=== PATIENT | male | born 2005 | race Two or more races ===

== ENCOUNTER 2024-08-17 03:27 | Inpatient (IN) | payer MEDICAID, SELFPAY ==
[~2024-08-17] VITALS: Ht 172.7 cm; Wt 72.6 kg
[2024-08-17 03:58] VITALS: PULSE 90; RESP 22; O2SAT 93
--- NOTE | 2024-08-17 04:02 | ED.PDOC ---
HPI (NEURO) HPI Comments 18-year-old male who came to ER via EMS for seizures. Patient was playing video games with his cousin earlier when he had a seizure like activity lasting about 5-10 minutes. Noted oral trauma. Mother who arrived, stated patient was confused initially. No fever noted. Patient has no recollection what happened. Patient has no history of seizures. Patient denies taking any prohibited drugs or alcohol. Chief Complaint: Seizure Time Seen by MD: 04:26 Reviewed Notes: [employer] Faculty Member Notes Information Source: Patient, Relative (Mother), Emergency Med Personnel Mode of Arrival: EMS Severity: Moderate Dizziness/Weakness Severity: Unable to do activities Headache Severity: Moderate Timing: Minutes Duration: Minutes Prehospital treatment: Oxygen Seizure Quality: Tonic-clonic Headache Quality: Throbbing, Aching Headache Location: Generalized Weakness Location: Generalized Numbness Location: Generalized Seizure Location: Generalized Onset: With light exertion Circumstances: Spontaneous Symptoms: Weakness Before: Normal During: LOC, Trauma: Tongue (Upper lip) After: Confusion, Headache Associated Signs and Symptoms: Headache, Weakness Review of Systems REVIEW OF SYSTEMS: No fever, no chills, or fatigue HEENT: No sore throat, no earache, no congestion, no neck pain. Cardiac: No chest pain. No palpitations. Lungs: No shortness of breath, no cough. GI: No nausea, no vomiting, no diarrhea, no constipation, no abdominal pain : No dysuria, frequency, or urgency. No hematuria. Musculoskeletal: No joint pain , no joint swelling, no extremity edema. Skin: No rash, no itching. Neuro: (+) headache, no dizziness, no weakness (+) seizures Vital Signs Vital Signs Date Time Temp Pulse Resp B/P (MAP) Pulse Ox O2 Delivery O2 Flow Rate FiO2 08/17/24 09:07 94 08/17/24 08:24 Room Air* 0 21 08/17/24 07:54 12 115/65 (82) 96 08/17/24 07:32 98.0 98.0 Physical Exam General: Awake, alert and oriented. No acute distress. Skin: Skin in warm, dry and intact. Appropriate color for ethnicity. Nailbeds pink with no cyanosis. HEENT: The head is normocephalic and without laceration or hematoma. Conjunctivae are clear without exudates or hemorrhage. Sclera is non-icteric. EOM are intact. No signs of nystagmus. PERRLA Eyelids are normal in appearance without swelling or lesions. Oral mucosa is pink and moist. Minor puncture wound left upper inner lip. No active bleeding. No tongue laceration noted. Neck: The neck is supple with normal range of motion. Cardiac: Heart rate and rhythm are normal. No murmurs, gallops, or rubs are auscultated. Respiratory: No signs of respiratory distress. Lung sounds are clear in all lobes bilaterally without rales, rhonchi, or wheezes. Abdominal: Abdomen is soft, non-tender without distention. Bowel sounds are present and normoactive in all four quadrants. Extremities: Upper and lower extremities are atraumatic in appearance without deformity or edema. Neurological: The patient is awake, alert and oriented to person, place, and time with normal speech. Speech is clear. There is no facial asymmetry. Normal gcyrkt-hi-orlo test. Strength in upper and lower extremities intact Past Medical History PAST MEDICAL HISTORY: Denies Surgical History: Denies all surgeries Family History Family History: Reviewed,noncontributory to illness Social History Smoker: Non-Smoker Alcohol: Denies ETOH Use Drugs: Denies Drug Use Lives In: Home Was a procedure done? Was a procedure done?: No Differential Diagnosis (SZ) Seizure: Hypoxemia, Idiopathic, Syncope, Epilepsy-Break Through, Epilepsy- Status X-Ray, Labs, Meds, VS Vital Signs Date Time Temp Pulse Resp B/P (MAP) Pulse Ox O2 Delivery O2 Flow Rate FiO2 08/17/24 09:07 94 08/17/24 08:24 Room Air* 0 08/17/24 07:54 82 12 115/65 (82) 96 08/17/24 07:32 98.0 82 12 115/65 (82) 96 98.0 08/17/24 04:26 83 18 118/62 (80) 97 08/17/24 03:58 90 22 93 Room Air* 0 21 08/17/24 03:58 97.9 90 22 123/67 (85) 93 97.9 08/17/24 03:35 97.9 100 18 150/82 (104) 98 97.9 Lab Test 08/17/24 08:00 08/17/24 04:01 Range/Units Urine Color Light-yellow Yellow Urine Clarity Clear Clear Urine pH 6.0 5.0-9.0 Urine Specific [place] 1.015 1.001-1.035 Urine Protein Negative Negative Urine Ketones Negative Negative Urine Blood Trace H Negative /uL Urine Nitrite Negative Negative Urine Bilirubin Negative Negative Urine Urobilinogen Normal Negative mg/dL Urine Leukocyte Esterase Negative Negative /uL Urine RBC None seen 0 - 3 /hpf Urine Microscopic WBC 1 0-3 /HPF Urine Squamous Epithelial Cells None seen <5 /hpf Urine Bacteria None seen None Seen /hpf Urine Glucose Normal Normal mg/dL Urine Opiates Screen Neg NEGATIVE Urine Fentanyl Screen Neg NEGATIVE Urine Barbiturates Screen Neg NEGATIVE Urine Phencyclidine Screen Neg NEGATIVE Urine Amphetamines Screen Neg NEGATIVE Urine Benzodiazepines Screen Neg NEGATIVE Urine Cocaine Screen Neg NEGATIVE Urine Cannabinoids Screen Neg NEGATIVE White Blood Count 12.2 H 4.4-10.8 10^3/uL Red Blood Count 5.28 4.5-5.90 10^6/uL Hemoglobin 15.6 13.5-17.5 g/dL Hematocrit 46.9 41.0-53.0 % Mean Corpuscular Volume 88.9 80.0-100.0 fL Mean Corpuscular Hemoglobin 29.6 28.0-32.0 pg Mean Corpuscular Hemoglobin Concent 33.3 32.0-36.0 g/dL Red Cell Distribution Width 13.4 11.8-14.3 % Platelet Count 284 140-450 10^3/uL Mean Platelet Volume 9.3 6.9-10.8 fL Neutrophils (%) (Auto) 64.8 37.0-80.0 % Lymphocytes (%) (Auto) 27.5 10.0-50.0 % Monocytes (%) (Auto) 4.8 0.0-12.0 % Eosinophils (%) (Auto) 1.6 0.0-7.0 % Basophils (%) (Auto) 1.3 0.0-2.0 % Neutrophils # (Auto) 7.9 1.6-8.6 10 ^3/uL Lymphocytes # (Auto) 3.3 0.4-5.4 10 ^3/uL Monocytes # (Auto) 0.6 0-1.3 10 ^3/uL Eosinophils # (Auto) 0.2 0-0.8 10 ^3/uL Basophils # (Auto) 0.2 0-0.2 10 ^3/uL Nucleated Red Blood Cells 0.1 % Sodium Level 142 136-145 mmol/L Potassium Level 3.9 3.5-5.1 mmol/L Chloride Level 107 98-107 mmol/L Carbon Dioxide Level 22 20-31 mmol/L Anion Gap 13 5-15 Blood Urea Nitrogen 10 9-23 mg/dL Creatinine 1.06 0.700-1.30 mg/dL Glomerular Filtration Rate Calc 103 >90 mL/min BUN/Creatinine Ratio 9.4 L 10.0-20.0 Serum Glucose 102 74-106 mg/dL Calcium Level 9.8 8.7-10.4 mg/dL Total Bilirubin 0.5 0.2-1.0 mg/dL Aspartate Amino Transferase (AST) 38 H <34 U/L Alanine Aminotransferase (ALT) 34 7-40 U/L Alkaline Phosphatase 101 46-116 U/L Total Protein 7.6 5.7-8.2 g/dL Albumin 5.0 H 3.2-4.8 g/dL Levetiracetam Level Pending Current Medications Medications (Trade) Dose Ordered Sig/Rhona Route Start Time Stop Time Status Last Admin Sodium Chloride 1,000 ml @ 1,000 mls/hr Q1H ONCE IV 08/17/24 04:00 08/17/24 04:59 DC 08/17/24 04:38 Levetiracetam 100 ml @ 400 mls/hr ONCE ONCE IV 08/17/24 04:00 08/17/24 04:14 DC 08/17/24 04:41 Acetaminophen/ Hydrocodone Bitart ([place] 5/325MG Tab) 1 tab ONCE ONCE PO 08/17/24 09:15 08/17/24 09:16 DC 08/17/24 09:37 Time of 1ST Reevaluation: 04:16 Reevaluation 1ST: Unchanged Patient Education/Counseling: Other (Need for admission) Family Education/Counseling: Other (Need for admission) Departure 1 Departure Time of Disposition: 04:54 Impression: Primary Impression: New onset seizure Disposition: ADMITTED INPATIENT Condition: Stable Comments 18-year-old male with new onset seizure. Patient is awake, alert, oriented and neurologically intact during the ED observation with no further seizure-like activity. Patient admitted to hospitalist service for further treatment, evaluation and monitoring. Extensive evaluation was performed in attempt to identify or rule out: (See differential diagnosis section) The following tests were ordered, and results were reviewed by me and discussed with patient: (See diagnostic results section) The following test were independently interpreted by me: N/A I reviewed and agreed with the following test results read by other providers: N/A I reviewed the following notes from the pt's past medical encounters: N/A Additional information was gathered from interviewing the following independent historians: Patient's mother at bedside Discussion of management or test interpretation with external physician/other qualified health child care counselor: N/A Addressed an acute or chronic illness that poses a threat to life or bodily function: Seizure Decision regarding hospitalization or escalation of hospital level of care: Risk and benefits of admission for further treatment of patient's condition was considered. Due to patient's current clinical condition, high risk of decline and poor outcome if discharged and need for further inpatient management and monitoring, patient will be admitted to the hospital. Discussed with patient. Drug therapy requiring intensive monitoring for toxicity: IV Keppra Parenteral controlled substances: N/A Decision regarding elective major surgery with identified patient or procedure risk factors: N/A Decision regarding emergency major surgery: N/A Decision not to resuscitate or to de-escalate care because of poor prognosis: N/A Diagnosis or treatment significantly limited by social determinants of health: N/A Critical Care Note Critical Care Time?: No Stability Stability form required: No Heart Score Heart Score: Heart Score Response (Comments) Value History N/A 0 EKG N/A 0 Age N/A 0 Risk Factors N/A 0 Troponin N/A 0 Total 0 I personally scribed for MEDARDO BUSH MD ([email or web address]) on 08/17/24 at 04:02. Electronically submitted by Clifton Gaitan ([email or web address]). I personally scribed for MEDARDO BUSH MD ([email or web address]) on 08/17/24 at 04:27. Electronically submitted by Clifton Gaitan ([email or web address]). MEDARDO BUSH MD Aug 17, 2024 04:02
[2024-08-17 04:20] LABS: Basophils # (auto) 0.2 10 ^3/uL (0-0.2); Basophils % (auto) 1.3 % (0.0-2.0); Eosinophils # (auto) 0.2 10 ^3/uL (0-0.8); Eosinophils % (auto) 1.6 % (0.0-7.0); Hematocrit 46.9 % (41.0-53.0); Hemoglobin 15.6 g/dL (13.5-17.5); Lymphocytes # (auto) 3.3 10 ^3/uL (0.4-5.4); Lymphocytes % (auto) 27.5 % (10.0-50.0); Mean Corpuscular Hemoglobin 29.6 pg (28.0-32.0); Mean Corpuscular Hgb Conc. 33.3 g/dL (32.0-36.0); Mean Corpuscular Volume 88.9 fL (80.0-100.0); Monocytes # (auto) 0.6 10 ^3/uL (0-1.3); Monocytes % (auto) 4.8 % (0.0-12.0); Neutrophils # (auto) 7.9 10 ^3/uL (1.6-8.6); Neutrophils % (auto) 64.8 % (37.0-80.0); Nucleated Red Blood Cells % 0.1 %; Platelet Count (auto) 284 10^3/uL (140-450); Red Blood Cells 5.28 10^6/uL (4.5-5.90); Red Cell Distribution Width 13.4 % (11.8-14.3); White Blood Cell 12.2 10^3/uL (4.4-10.8)
[2024-08-17 04:28] LABS: Alanine Aminotransferase 34 U/L (7-40); Alkaline Phosphatase 101 U/L (46-116); Anion Gap 13 (5-15); BUN/Creatinine Ratio 9.4 (10.0-20.0); Blood Urea Nitrogen 10 mg/dL (9-23); Calcium 9.8 mg/dL (8.7-10.4); Carbon Dioxide 22 mmol/L (20-31); Chloride 107 mmol/L (98-107); Glucose 102 mg/dL (74-106); Potassium 3.9 mmol/L (3.5-5.1); Sodium 142 mmol/L (136-145); Total Protein 7.6 g/dL (5.7-8.2)
[2024-08-17 04:29] LABS: Bilirubin, Total 0.5 mg/dL (0.2-1.0)
[2024-08-17] MEDS: SODIUM CHLORIDE 0.9% 1,000 ML IV ONE (04:38)
[2024-08-17] MEDS: levETIRAcetam 1000 mg/100ml 100 ML IV ONE (04:41)
--- NOTE | 2024-08-17 04:45 | DVH ---
EXAM: CT HEAD WITHOUT CONTRAST INDICATION: Seizure, head injury TECHNIQUE: CT of the head without intravenous contrast. Radiation Dose : 1. Head: CT Dose: CTDI volume is 62.94 mGy. Dose-length product is 1240.19 mGy*cm The dose indicators for CT are the volume Computed Tomography (CT) Dose Index (CTDIvol) and the Dose Length Product (DLP), and are measured in units of mGy and mGy-cm, respectively. These indicators are not patient dose, but values generated from the CT scanner acquisition factors. The report includes radiation exposure data for exposures received during this examination. COMPARISON: None FINDINGS: There is no evidence of acute intracranial hemorrhage, extra-axial collection, mass effect, midline s hift, herniation or hydrocephalus. The ventricles, sulci and cisterns are age appropriate. The aguilar-white differentiation is intact. The visualized paranasal sinuses and mastoid air cells are clear. Mild right frontal/ supraorbital scalp soft tissue swelling and edema. The surrounding soft tissues a nd osseous structures are otherwise unremarkable. IMPRESSION: 1. No acute intracranial abnormality. 2. Mild right frontal / supraorbital scalp soft tissue swelling and edema. Radiation optimization: All CT scans at this facility use at least one of these dose optimization winifred hniques: automated exposure control mA and/or kV adjustment per patient size (includes targeted exam s where dose is matched to clinical indication) or iterative reconstruction.
[2024-08-17 05:01] LABS: Aspartate Aminotransferase 38 U/L (<34)
[2024-08-17] MEDS: HYDROcodone-ACET 5/325MG TAB PO ONE (09:37)
[2024-08-17 09:52] LABS: Urine Bacteria None Seen /hpf (None Seen)
[2024-08-17 10:12] LABS: Urine Blood TRACE /uL (Negative); Urine Clarity Clear (Clear); Urine Color Light-Yellow (Yellow); Urine Protein, UAD Negative (Negative); Urine Specific Gravity 1.015 (1.001-1.035); Urine Squamous Epithelial Cell None Seen /hpf (<5); Urine Urobilinogen Normal (Negative); Urine WBC 1 /HPF (0-3)
[2024-08-17] MEDS ORDERED: ACETAMINOPHEN 325 MG TAB PO PRN (10:15)
[2024-08-17] MEDS ORDERED: HYDROcodone-ACET 5/325MG TAB PO PRN (10:15)
[2024-08-17] MEDS ORDERED: LORazepam 2MG/ML-1ML VIAL IV PRN ×2 (10:15→19:45)
--- NOTE | 2024-08-17 10:21 | DVHHP2 ---
History of Present Illness History of Present Illness 18-year-old male who came to ER via EMS for seizures. Patient was playing video games with his cousin earlier when he had a seizure like activity lasting about 5-10 minutes. Patient was watching movie night, and then gains in his cousin leading to cotton picking machine operator 3:00 a.m.. He has cousin went to bathroom and on return saw him unresponsive and blood in his mouth. When mom returned he was not making eye contact his eyes were open and looking into the ceiling. Patient was not responding to mother. patient was confused initially. Patient had 1 episode of emesis before going to the ambulance. Patient gets enough sleep although late. No alcohol, no energy drinks. Patient hydrate with water and adequate. Is not in college in no known drug abuse. No fever noted. Patient has no recollection what happened. Patient has no history of seizures. Patient denies taking any prohibited drugs or alcohol. Patient's mother is an employee at [employer] Review of Systems Allergies: Coded Allergies: NO KNOWN ALLERGIES (Unverified , 08/17/24) Exam Vital Signs Vital Signs Date Time Temp Pulse Resp B/P (MAP) Pulse Ox O2 Delivery O2 Flow Rate FiO2 08/17/24 09:07 94 08/17/24 08:24 Room Air* 0 21 08/17/24 07:54 12 115/65 (82) 96 08/17/24 07:32 98.0 98.0 Exam GEN: Healthy appearing, well-developed, NAD. HEENT: NC/AT; upper lip minor laceration CV: RRR, no m/r/g. LUNGS: CTAB, no w/r/c. ABD: Soft, NT/ND, NBS, no masses or organomegaly. EXT: skin Warm, well perfused. no rashes. No clubbing, cyanosis, or edema. NEURO: Ambulating with no limitations. No focal deficits. Negative Kernig, negative Brudzinski sign. Labs/Xrays Labs Test 08/17/24 08:00 08/17/24 04:01 Range/Units White Blood Count 12.2 H 4.4-10.8 10^3/uL Red Blood Count 5.28 4.5-5.90 10^6/uL Hemoglobin 15.6 13.5-17.5 g/dL Hematocrit 46.9 41.0-53.0 % Mean Corpuscular Volume 88.9 80.0-100.0 fL Mean Corpuscular Hemoglobin 29.6 28.0-32.0 pg Mean Corpuscular Hemoglobin Concent 33.3 32.0-36.0 g/dL Red Cell Distribution Width 13.4 11.8-14.3 % Platelet Count 284 140-450 10^3/uL Mean Platelet Volume 9.3 6.9-10.8 fL Neutrophils (%) (Auto) 64.8 37.0-80.0 % Lymphocytes (%) (Auto) 27.5 10.0-50.0 % Monocytes (%) (Auto) 4.8 0.0-12.0 % Eosinophils (%) (Auto) 1.6 0.0-7.0 % Basophils (%) (Auto) 1.3 0.0-2.0 % Neutrophils # (Auto) 7.9 1.6-8.6 10 ^3/uL Lymphocytes # (Auto) 3.3 0.4-5.4 10 ^3/uL Monocytes # (Auto) 0.6 0-1.3 10 ^3/uL Eosinophils # (Auto) 0.2 0-0.8 10 ^3/uL Basophils # (Auto) 0.2 0-0.2 10 ^3/uL Nucleated Red Blood Cells 0.1 % Sodium Level 142 136-145 mmol/L Potassium Level 3.9 3.5-5.1 mmol/L Chloride Level 107 98-107 mmol/L Carbon Dioxide Level 22 20-31 mmol/L Anion Gap 13 5-15 Blood Urea Nitrogen 10 9-23 mg/dL Creatinine 1.06 0.700-1.30 mg/dL Glomerular Filtration Rate Calc 103 >90 mL/min BUN/Creatinine Ratio 9.4 L 10.0-20.0 Serum Glucose 102 74-106 mg/dL Calcium Level 9.8 8.7-10.4 mg/dL Total Bilirubin 0.5 0.2-1.0 mg/dL Aspartate Amino Transferase (AST) 38 H <34 U/L Alanine Aminotransferase (ALT) 34 7-40 U/L Alkaline Phosphatase 101 46-116 U/L Total Protein 7.6 5.7-8.2 g/dL Albumin 5.0 H 3.2-4.8 g/dL Assessment/Plan Assessment/Plan New onset seizure Head trauma Leukocytosis Tachycardia Tachypnea -UA UDS pending - patient is afebrile, white count could be reactive, holding off antibiotics low concern for meningitis at this time pending neurology eval - CT head negative - aspiration precaution - Keppra 500 IV b.i.d. - clear liquid diet Neurology consult Q.4h neuro checks Clear liquid diet GI prophylaxis no indication DVT prophylaxis-no indication Med surge Full code Plan discussed with: Patient Date of Service: Aug 17, 2024 Billing Provider: PATRICIA JUNIOR MD Common Visit Codes: [id number] INP/OBS CARE (HIGH) Secondary Visit Codes: [id number] CARE PLAN 30 MINUTES PATRICIA JUNIOR MD Aug 17, 2024 10:21
[2024-08-17 10:54] LABS: Amphetamine Screen, Urine Neg (NEGATIVE); Barbiturate Scree,Urine Neg (NEGATIVE); Benzodiazephine Screen, Urine Neg (NEGATIVE); Cannabinoid Screen, Urine Neg (NEGATIVE); Cocaine Screen, Urine Neg (NEGATIVE); Opiate Scree,Urine Neg (NEGATIVE); Phencyclidine Screen, Urine Neg (NEGATIVE)
[2024-08-17] MEDS: MORPHINE SULFATE INJ 2 MG/ml SYRG IV PRN (17:51)
[2024-08-17] MEDS: ONDANSETRON HCL 4 MG/2 ML VIAL IV PRN (17:51)
--- NOTE | 2024-08-17 18:25 | DVHINCON2 ---
Date of service: Aug 17, [address] Duane Butterfield Reason for Consultation New onset seizure History of Present Illness Mr. Oliver is a 18 years old right-handed gentleman otherwise healthy, the patient was brought to the [facility] for new onset seizure a ctivity, at that time, he is alert and fully oriented, but he has complete amnesia about his seizure symptoms, his mother was in the room and he provided the following history Around 2:30 a.m. on 08/17/2024, when he was playing video game when his cousin, he fell down and became nonresponsive with son movement in the head, but no convulsion, he also had blood came out of his mouth. He became responsive 120 minutes after the event over, but he was not mentally recovered until he came to the emergency room. He has never had similar problem before, he has no history of seizure disorder, he has no symptoms olfactory hallucination. Mother said he was a normal keeps, met all his developmental milestones. No drug abuse. He mostly sleeps from 10 p.m. - 10-11 a.m.. His sleep is refreshing, he denies excessive daytime sleepiness fatigue, He used to snore loudly, but not anymore after tonsillectomy, but he still snore two nights weekly UDS, 08/17/2024: Negative Urinalysis, 08/17/2024: Unremarkable CBC, 08/17/2024: WBC, 12.2 CMP, 08/17/2024: AST: 38 CT head, 08/17/2024: 1. No acute intracranial abnormality. 2. Mild right frontal / supraorbital scalp soft tissue swelling and edema. Past Medical History None Past Surgical History None Family History One of his father's brother had seizure since he was fall and was on seizure medication. No other major medical problems Social History He is not a tobacco smoke, he has no history of drug, alcohol abuse, he is not licensed to drive, he does not work Allergies: Coded Allergies: NO KNOWN ALLERGIES (Unverified , 08/17/24) Current Medications Current Medications Medications (Trade) Dose Ordered Sig/Rhona Route PRN Reason Start Time Stop Time Status Last Admin Acetaminophen/ Hydrocodone Bitart ([place] 5/325MG Tab) 1 tab Q4HP PRN PO MODERATE PAIN (4-6 PAIN SCALE) 08/17/24 10:15 Ondansetron HCl (Zofran) 4 mg Q4HP PRN IV NAUSEA / VOMITING 08/17/24 10:15 08/17/24 17:51 Acetaminophen (Tylenol Tablet) 650 mg Q6HP PRN PO PAIN SCALE 1-3 OR TEMP>100.4 08/17/24 10:15 Morphine Sulfate 2 mg Q4HPRN PRN IV SEVERE PAIN (7-10 PAIN SCALE) 08/17/24 10:15 08/17/24 17:51 Levetiracetam 100 ml @ 400 mls/hr BID IV 08/17/24 22:00 Lorazepam (Ativan Inj) 1 mg Q5MINP PRN IV SEIZURES 08/17/24 10:15 Review of Systems As above, the other systems are negative Vital Signs Vital Signs Date Time Temp Pulse Resp B/P (MAP) Pulse Ox O2 Delivery O2 Flow Rate FiO2 08/17/24 18:03 98.1 72 11 100/55 (70) 98 98.1 08/17/24 08:24 Room Air* 0 21 Physical Exam GENERAL EXAM: General: the patient is well developed and nourished. No acute distress. HEENT: Normocephalic, neck is supple, no carotid bruits. No mass. RESPIRATORY: Normal respiratory effort with symmetrical lung expansion. Lungs clear to auscultation. CARDIOVASCULAR: Regular rate and rhythm with no murmurs. S1, S2. ABDOMEN: Soft, nontender, normal bowel sound NEUROLOGICAL: MENTAL STATUS: Awake and alert. Oriented to person, place, time and general circumstances. Able to give personal history. SPEECH, LANGUAGE, HIGHER CORTICAL FUNCTION: no aphasia or dysathria. CRANIAL NERVES: #2: Intact visual motley to confrontation. The optic discs were sharp. Retinal background was uniformly pink in appearance. There was no hemorrhages or exudates. #3,4,6: Pupils are equal, round and reactive. EOMs full and conjugate. Mild bilateral gaze evoked nystagmus. #5: Facial sensation intact in all three divisions bilaterally. Mandibular strength intact. #7: Facial muscles symmetrical and strength intact. #8: Hearing grossly normal to voice. #9,10: Uvula and soft palate rise in the midline. Swallow and voice are normal. #11: Trapezius and sternomastoid strength intact bilaterally. #12: Tongue midline. No fasciculations or atrophy. SENSATION: Sensation to touch and pinprick is normal. MOTOR: Normal tone in the upper and lower extremity. Normal muscle bulk. No fasciculations. No abnormal movements or posturing. Muscle strength of the major groups in the upper extremities is 5/5. Muscle strength of the major groups in the lower extremities is 5/5. REFLEXES: Deep tendon reflexes normal and symmetrical. No pathological reflexes. CEREBELLAR/COORDINATION: Finger to nose and heel to cassidy are normal bilaterally. GAIT/STATION: deferred. Labs/Diagnostic Data Labs Test 08/17/24 08:00 08/17/24 04:01 Range/Units Urine Color Light-yellow Yellow Urine Clarity Clear Clear Urine pH 6.0 5.0-9.0 Urine Specific [place] 1.015 1.001-1.035 Urine Protein Negative Negative Urine Ketones Negative Negative Urine Blood Trace H Negative /uL Urine Nitrite Negative Negative Urine Bilirubin Negative Negative Urine Urobilinogen Normal Negative mg/dL Urine Leukocyte Esterase Negative Negative /uL Urine RBC None seen 0 - 3 /hpf Urine Microscopic WBC 1 0-3 /HPF Urine Squamous Epithelial Cells None seen <5 /hpf Urine Bacteria None seen None Seen /hpf Urine Glucose Normal Normal mg/dL Urine Opiates Screen Neg NEGATIVE Urine Fentanyl Screen Neg NEGATIVE Urine Barbiturates Screen Neg NEGATIVE Urine Phencyclidine Screen Neg NEGATIVE Urine Amphetamines Screen Neg NEGATIVE Urine Benzodiazepines Screen Neg NEGATIVE Urine Cocaine Screen Neg NEGATIVE Urine Cannabinoids Screen Neg NEGATIVE White Blood Count 12.2 H 4.4-10.8 10^3/uL Red Blood Count 5.28 4.5-5.90 10^6/uL Hemoglobin 15.6 13.5-17.5 g/dL Hematocrit 46.9 41.0-53.0 % Mean Corpuscular Volume 88.9 80.0-100.0 fL Mean Corpuscular Hemoglobin 29.6 28.0-32.0 pg Mean Corpuscular Hemoglobin Concent 33.3 32.0-36.0 g/dL Red Cell Distribution Width 13.4 11.8-14.3 % Platelet Count 284 140-450 10^3/uL Mean Platelet Volume 9.3 6.9-10.8 fL Neutrophils (%) (Auto) 64.8 37.0-80.0 % Lymphocytes (%) (Auto) 27.5 10.0-50.0 % Monocytes (%) (Auto) 4.8 0.0-12.0 % Eosinophils (%) (Auto) 1.6 0.0-7.0 % Basophils (%) (Auto) 1.3 0.0-2.0 % Neutrophils # (Auto) 7.9 1.6-8.6 10 ^3/uL Lymphocytes # (Auto) 3.3 0.4-5.4 10 ^3/uL Monocytes # (Auto) 0.6 0-1.3 10 ^3/uL Eosinophils # (Auto) 0.2 0-0.8 10 ^3/uL Basophils # (Auto) 0.2 0-0.2 10 ^3/uL Nucleated Red Blood Cells 0.1 % Sodium Level 142 136-145 mmol/L Potassium Level 3.9 3.5-5.1 mmol/L Chloride Level 107 98-107 mmol/L Carbon Dioxide Level 22 20-31 mmol/L Anion Gap 13 5-15 Blood Urea Nitrogen 10 9-23 mg/dL Creatinine 1.06 0.700-1.30 mg/dL Glomerular Filtration Rate Calc 103 >90 mL/min BUN/Creatinine Ratio 9.4 L 10.0-20.0 Serum Glucose 102 74-106 mg/dL Calcium Level 9.8 8.7-10.4 mg/dL Total Bilirubin 0.5 0.2-1.0 mg/dL Aspartate Amino Transferase (AST) 38 H <34 U/L Alanine Aminotransferase (ALT) 34 7-40 U/L Alkaline Phosphatase 101 46-116 U/L Total Protein 7.6 5.7-8.2 g/dL Albumin 5.0 H 3.2-4.8 g/dL Assessment Fall, passing out, with abnormal head movement and oral trauma, likely he had new onset seizure provoked by sleep deprivation Plan/Recommendation Monitoring Supportive treatment Telemetry EEG MR brain scan Ativan for seizure breakthrough Hold off preventive seizure treatment Common seizure triggers discussed Seizure related driving, work and other restriction discussed He has been recommended to have a regular sleep schedule, and discussed with his family doctor Re: Long asleep period This medical document was created using an electronic medical record system with [employer] system. Although this document has been carefully reviewed, there may still be some phonetic and typographical errors. These areas are purely typographical due to imperfections of the software programs, and do not reflect any compromise in the patient's medical care. Plan discussed with: Patient, Other COLT RAPHAEL MD Aug 17, 2024 18:25
[2024-08-17] MEDS ORDERED: levETIRAcetam 500 mg/100ml 100 ML IV SCH (22:00)
[2024-08-17 23:33] VITALS: BP 107/62; PULSE 73; RESP 16; TEMP 98.5; O2SAT 99
[2024-08-18] VITALS (7 sets, daily range): BP systolic 97–111; BP diastolic 51–67; PULSE 64–75; RESP 16–18; TEMP 97.2–99.6; O2SAT 95–98
[2024-08-18 05:27] LABS: Basophils # (auto) 0.1 10 ^3/uL (0-0.2); Basophils % (auto) 0.9 % (0.0-2.0); Eosinophils # (auto) 0.2 10 ^3/uL (0-0.8); Eosinophils % (auto) 2.1 % (0.0-7.0); Hematocrit 44.2 % (41.0-53.0); Hemoglobin 15.2 g/dL (13.5-17.5); Mean Corpuscular Hemoglobin 30.2 pg (28.0-32.0); Mean Corpuscular Hgb Conc. 34.3 g/dL (32.0-36.0); Mean Corpuscular Volume 88.1 fL (80.0-100.0); Monocytes # (auto) 0.8 10 ^3/uL (0-1.3); Monocytes % (auto) 9.8 % (0.0-12.0); Neutrophils # (auto) 5.1 10 ^3/uL (1.6-8.6); Neutrophils % (auto) 63.2 % (37.0-80.0); Platelet Count (auto) 240 10^3/uL (140-450); Red Blood Cells 5.02 10^6/uL (4.5-5.90); Red Cell Distribution Width 13.5 % (11.8-14.3); White Blood Cell 8.1 10^3/uL (4.4-10.8)
[2024-08-18 05:48] LABS: Alanine Aminotransferase 34 U/L (7-40); Albumin 4.7 g/dL (3.2-4.8); Alkaline Phosphatase 94 U/L (46-116); Anion Gap 9 (5-15); Aspartate Aminotransferase 38 U/L (<34); BUN/Creatinine Ratio 9.3 (10.0-20.0); Bilirubin, Total 0.9 mg/dL (0.2-1.0); Blood Urea Nitrogen 11 mg/dL (9-23); Carbon Dioxide 28 mmol/L (20-31); Chloride 105 mmol/L (98-107); Glucose 81 mg/dL (74-106); Potassium 3.8 mmol/L (3.5-5.1); Sodium 142 mmol/L (136-145); Total Protein 7.2 g/dL (5.7-8.2)
--- NOTE | 2024-08-18 09:21 | DVH ---
PROCEDURE: MRI BRAIN HEAD WO CONTRAST INDICATION: sz EXAM DATE: 08/18/2024 07:45 AM COMPARISON: None TECHNIQUE: MRI of the brain without intravenous contrast. Seizure protocol. FINDINGS: Diffusion weighted images of the brain demonstrate no evidence of acute infarction. There is no evidence of acute intracranial hemorrhage, extra-axial collection, mass effect, midline s hift, herniation or hydrocephalus. The ventricles, sulci and cisterns appear age appropriate. The signal intensities of the brain parenchyma are within normal limits. There are no signal abnormalities on the susceptibility weighted sequences. The major vascular flow voids are present. The visualized paranasal sinuses and mastoid air cells are clear. The surrounding soft tissues and o sseous structures are unremarkable. IMPRESSION: 1. No evidence of acute infarction, intracranial hemorrhage, mass effect or hydrocephalus. No evidenc e of mesial temporal sclerosis. HS:Y
[2024-08-18 10:28] LABS: Hepatitis B Surface Antigen Negative (Negative); Hepatitis C Antibody Negative (Negative)
--- NOTE | 2024-08-18 15:35 | DVHPNRES ---
Progress Note Date Seen: Aug 18, 2024 Resident Creating Document: MEGAN HORNE RESIDENT Has the PT tested + for MRSA If YES, has PT been informed?: No Medical Necessity Reason Pt with a Central, PICC or Fol: No Subjective Review of Systems 18-year-old male with no prior history of seizures presented via EMS after an episode of unresponsiveness with suspected seizure-like activity. The event occurred around 3:00 AM while the patient was watching movies and playing video games with his cousin. The cousin briefly left for the restroom and found the patient unresponsive with blood in his mouth upon return. Per mother, the patient had tonic clonic movements for 1 min. On EMS arrival, the patient was confused and had 1 episode of emesis. He regained full orientation about 2 hours later but had complete amnesia of the event. No history of similar events in the past. Patient reports regular but delayed sleep patterns. No drug or alcohol use. Denies recent illness. Patients mother works at [employer] and confirms no prior neurologic or psychiatric conditions. Family history notable for seizure disorder in a paternal uncle. ROS: Negative except for reported emesis and postictal confusion. Denies fever, chest pain, SOB, headache, or recent illness. Past Medical History: None Past Surgical History: Tonsillectomy Medications on Admission: None Allergies: NKDA Family History: Paternal uncle with seizure disorder after a fall. Otherwise non-contributory. Social History: Non-smoker, denies alcohol or recreational drug use. Not employed, not in school, does not drive. Objective vital signs Vital Sign Date Time Temp Pulse Resp B/P (MAP) Pulse Ox O2 Delivery O2 Flow Rate FiO2 08/18/24 12:53 97.5 74 16 111/67 (82) 97 97.5 08/18/24 08:05 Room Air* 0 21 Total Intake and Output 08/17/24 08/17/24 08/18/24 15:00 23:00 07:00 Intake Total 430 ml Output Total 500 ml Balance -500 ml 430 ml medications Current Medications Medications Dose Ordered Sig/Rhona Route Start Time Stop Time Status Last Admin Dose Admin Acetaminophen/ Hydrocodone Bitart 1 tab Q4HP PRN PO 08/17/24 10:15 Ondansetron HCl 4 mg Q4HP PRN IV 08/17/24 10:15 08/17/24 17:51 4 MG Acetaminophen 650 mg Q6HP PRN PO 08/17/24 10:15 Morphine Sulfate 2 mg Q4HPRN PRN IV 08/17/24 10:15 08/18/24 04:23 2 MG Lorazepam 1 mg Q5MINP PRN IV 08/17/24 10:15 Lorazepam 1 mg ONCE PRN IV 08/17/24 19:45 Examination General: Alert, oriented x3, no acute distress HEENT: No head trauma noted, oral mucosa clear Neuro: Nonfocal. Alert and cooperative. No focal deficits noted. CV/Resp/Abd: WNL Skin: No rashes or injuries Psych: Normal affect, appropriate behavior laboratory and microbiology Laboratory Tests 08/18/24 04:49 Test 08/18/24 04:49 Range/Units Serum Glucose 81 74-106 mg/dL Problem List/Assessment/Plan Problem List/Assessment/Plan #New-onset seizure, likely provoked by sleep deprivation #Breakthrough seizure #Head trauma, oral injury #Mild leukocytosis resolved #Tachycardia and tachypnea on presentation #SIRS w/o OD Plan: Advance diet Monitor with telemetry Neurology consult EEG MRI brain normal No antibiotics started afebrile, leukocytosis likely reactive Education on seizure precautions: no driving, maintain regular sleep, seizure trigger avoidance Discussed with patient, mother and father Full code Case discussed with Dr Slater Plan discussed with: Patient, Other (rn) My Orders My Orders Orders - MEGAN HORNE Procedure Category Date Status Time Regular Diet DIET 08/18/24 Transmitted Lunch Date of Service: Aug 18, 2024 Billing Provider: AVELINO SLATER MD Common Visit Codes: [id number] INP/OBS CARE(MOD) MEGAN HORNE Aug 18, 2024 15:35 AVELINO SLATER MD Aug 25, 2024 21:19
--- NOTE | 2024-08-19 00:57 | DVHEEG2 ---
Neurology EEG Procedural Note Procedural Note EXAM DATE: 08/18/2024 REFERRING DOCTOR: Dr. Raphael TECHNIQUE: Eighteen channels of EEG, 2 channels of EOG, and 1 channel of EKG were recorded using the International 10/20 system. CLINICAL DATA: The patient was referred for an EEG evaluation for the evidence of seizure disorder. MEDICATIONS: See the chart BACKGROUND ACTIVITY: While the patient was awake, the background activity consisted of well regulated 11 Hz rhythmic waveforms, symmetrically distributed over both posterior quadrants and was reactive to eye opening. ACTIVATION: Hyperventilation: Not done Photic Stimulation: No photic convulsive response Sleep: Not seen IMPRESSION: This is a normal EEG. No focal, lateralized, or epileptiform features are noted. If clinically indicated to rule out a seizure disorder, recommend repeat EEG with sleep deprivation. The EKG channel showed a regular heart rate of 678 [place] [address] COLT RAPHAEL MD Aug 19, 2024 00:57
[2024-08-19 01:00] VITALS: BP 101/63; PULSE 78; RESP 14; TEMP 98.1; O2SAT 97
[2024-08-19 05:00] VITALS: BP 108/66; PULSE 77; RESP 14; TEMP 98; O2SAT 96
[2024-08-19 09:00] VITALS: BP 96/60; PULSE 77; RESP 16; TEMP 98.1; O2SAT 96
[2024-08-19 11:11] VITALS: TEMP 36.7
--- NOTE | 2024-08-19 19:11 | DVHDSRES ---
Discharge Summary Date of Admission Resident Creating Document: MEGAN HORNE RESIDENT Aug 17, 2024 at 10:04 Date of Discharge: Aug 19, 2024 Admitting Diagnosis #New-onset seizure, likely provoked by sleep deprivation Labs/Diagnostic Data: Laboratory Results Test 08/18/24 04:49 08/17/24 08:00 08/17/24 04:01 White Blood Count 8.1 10^3/uL (4.4-10.8) Red Blood Count 5.02 10^6/uL (4.5-5.90) Hemoglobin 15.2 g/dL (13.5-17.5) Hematocrit 44.2 % (41.0-53.0) Mean Corpuscular Volume 88.1 fL (80.0-100.0) Mean Corpuscular Hemoglobin 30.2 pg (28.0-32.0) Mean Corpuscular Hemoglobin Concent 34.3 g/dL (32.0-36.0) Red Cell Distribution Width 13.5 % (11.8-14.3) Platelet Count 240 10^3/uL (140-450) Mean Platelet Volume 9.2 fL (6.9-10.8) Neutrophils (%) (Auto) 63.2 % (37.0-80.0) Lymphocytes (%) (Auto) 24.0 % (10.0-50.0) Monocytes (%) (Auto) 9.8 % (0.0-12.0) Eosinophils (%) (Auto) 2.1 % (0.0-7.0) Basophils (%) (Auto) 0.9 % (0.0-2.0) Neutrophils # (Auto) 5.1 10 ^3/uL (1.6-8.6) Lymphocytes # (Auto) 2.0 10 ^3/uL (0.4-5.4) Monocytes # (Auto) 0.8 10 ^3/uL (0-1.3) Eosinophils # (Auto) 0.2 10 ^3/uL (0-0.8) Basophils # (Auto) 0.1 10 ^3/uL (0-0.2) Nucleated Red Blood Cells 0.0 % Sodium Level 142 mmol/L (136-145) Potassium Level 3.8 mmol/L (3.5-5.1) Chloride Level 105 mmol/L (98-107) Carbon Dioxide Level 28 mmol/L (20-31) Anion Gap 9 (5-15) Blood Urea Nitrogen 11 mg/dL (9-23) Creatinine 1.18 mg/dL (0.700-1.30) Glomerular Filtration Rate Calc 91 mL/min (>90) BUN/Creatinine Ratio 9.3 (10.0-20.0) Serum Glucose 81 mg/dL (74-106) Calcium Level 9.0 mg/dL (8.7-10.4) Total Bilirubin 0.9 mg/dL (0.2-1.0) Aspartate Amino Transferase (AST) 38 U/L (<34) Alanine Aminotransferase (ALT) 34 U/L (7-40) Alkaline Phosphatase 94 U/L (46-116) Total Protein 7.2 g/dL (5.7-8.2) Albumin 4.7 g/dL (3.2-4.8) Hepatitis B Surface Antigen Negative (Negative) Hepatitis C Antibody Negative (Negative) Urine Color Light-yellow (Yellow) Urine Clarity Clear (Clear) Urine pH 6.0 (5.0-9.0) Urine Specific [place] 1.015 (1.001-1.035) Urine Protein Negative (Negative) Urine Ketones Negative (Negative) Urine Blood Trace /uL (Negative) Urine Nitrite Negative (Negative) Urine Bilirubin Negative (Negative) Urine Urobilinogen Normal mg/dL (Negative) Urine Leukocyte Esterase Negative /uL (Negative) Urine RBC None seen /hpf (0 - 3) Urine Microscopic WBC 1 /HPF (0-3) Urine Squamous Epithelial Cells None seen /hpf (<5) Urine Bacteria None seen /hpf (None Seen) Urine Glucose Normal mg/dL (Normal) Urine Opiates Screen Neg (NEGATIVE) Urine Fentanyl Screen Neg (NEGATIVE) Urine Barbiturates Screen Neg (NEGATIVE) Urine Phencyclidine Screen Neg (NEGATIVE) Urine Amphetamines Screen Neg (NEGATIVE) Urine Benzodiazepines Screen Neg (NEGATIVE) Urine Cocaine Screen Neg (NEGATIVE) Urine Cannabinoids Screen Neg (NEGATIVE) Other Laboratory Tests 08/18/24 04:49 Brief Hx & Hospital Course: The patient is a 18-year-old male with no past medical history who presented via EMS after an episode of unresponsiveness and suspected seizure-like activity around 3:00 AM. The event occurred while he was watching movies and playing video games with his cousin. The cousin found the patient unresponsive with blood in his mouth; the mother reported tonic-clonic movements lasting about 1 minute. On EMS arrival, the patient was confused and had one episode of emesis. He regained full orientation after ~2 hours. No prior similar episodes. No drug, alcohol, or medication use. Family history is notable for a paternal uncle with seizure disorder following head trauma. Hospital Course: The patient was monitored with telemetry. Neurology was consulted. EEG and MRI brain were both normal. Vitals stabilized during admission; initial tachycardia and leukocytosis resolved without intervention. No antibiotics were started as the patient remained afebrile. The leukocytosis was deemed reactive. Discharge Condition: Stable. Neurologically intact. Tolerating diet. No further seizure activity. Discharge Medications: None prescribed Follow-Up Recommendations: Outpatient neurology follow-up No driving until cleared by neurology Maintain regular sleep schedule Avoid seizure triggers (e.g., sleep deprivation, stress, flashing lights) Disposition: Discharged home with family Code Status: Full Code Education Provided: Discussed seizure precautions with patient and both parents. Case discussed with Dr Clement Full code Consults/Reason for consult neurology due to seizure Operations or Procedures PROCEDURE: MRI BRAIN HEAD WO CONTRAST INDICATION: sz EXAM DATE: 08/18/2024 07:45 AM COMPARISON: None TECHNIQUE: MRI of the brain without intravenous contrast. Seizure protocol. FINDINGS: Diffusion weighted images of the brain demonstrate no evidence of acute infarction. There is no evidence of acute intracranial hemorrhage, extra-axial collection, mass effect, midline shift, herniation or hydrocephalus. The ventricles, sulci and cisterns appear age appropriate. The signal intensities of the brain parenchyma are within normal limits. There are no signal abnormalities on the susceptibility weighted sequences. The major vascular flow voids are present. The visualized paranasal sinuses and mastoid air cells are clear. The surrounding soft tissues and osseous structures are unremarkable. IMPRESSION: 1. No evidence of acute infarction, intracranial hemorrhage, mass effect or hydrocephalus. No evidence of mesial temporal sclerosis. EXAM: CT HEAD WITHOUT CONTRAST INDICATION: Seizure, head injury TECHNIQUE: CT of the head without intravenous contrast. Radiation Dose : 1. Head: CT Dose: CTDI volume is 62.94 mGy. Dose-length product is 1240.19 mGy*cm The dose indicators for CT are the volume Computed Tomography (CT) Dose Index (CTDIvol) and the Dose Length Product (DLP), and are measured in units of mGy and mGy-cm, respectively. These indicators are not patient dose, but values generated from the CT scanner acquisition factors. The report includes radiation exposure data for exposures received during this examination. COMPARISON: None FINDINGS: There is no evidence of acute intracranial hemorrhage, extra-axial collection, mass effect, midline shift, herniation or hydrocephalus. The ventricles, sulci and cisterns are age appropriate. The aguilar-white differentiation is intact. The visualized paranasal sinuses and mastoid air cells are clear. Mild right frontal/ supraorbital scalp soft tissue swelling and edema. The surrounding soft tissues and osseous structures are otherwise unremarkable. IMPRESSION: 1. No acute intracranial abnormality. Condition at Discharge: Stable Final Diagnosis/Problems List #New-onset seizure, likely provoked by sleep deprivation #Breakthrough seizure #Head trauma, oral injury #Mild leukocytosis resolved #Tachycardia and tachypnea on presentation #SIRS w/o OD Discharge Disposition: Home Discharge Instruct/Medications Diet: Regular Activity: Light activity Follow Up/Referral: fu with dr wallace and pcp Medications: no need of medications for now Discharge Statement: "Patient was advised to return to the ER or call 911 if any headaches, dizziness, shortness of breath, chest pain, abdominal pain, bleeding, fevers, or worsening of medical condition. Patient was counseled about treatment plan, medications, possible side effects, patientverbalized understanding. All questions were answered to the best of my ability. This discharge took greater then 30 minutes in planning, reviewing documentation, counseling the patient, and discussing with other team members." ASSESSMENT ASSESSMENT Assessment new onset seziures Date of Service: Aug 19, 2024 Billing Provider: AVELINO CLEMENT MD Common Visit Codes: [id number]/[id number] DISCH DAY >30min MEGAN HORNE RESIDENT Aug 19, 2024 19:11 AVELINO CLEMENT MD Aug 25, 2024 22:08
== END 2024-08-19 12:20 | disposition home or self-care (01) | DRG 53 ==
LOC: EDBD 03:27 → ER 03:27 → OVERFLOW 10:04 → WEST WING 21:12
PROVIDERS: ADMIT Student in an Organized Health Care Education/Training Program; ATTEND Student in an Organized Health Care Education/Training Program
DX: G40.409 Other generalized epilepsy and epileptic syndromes, not intractable, without status epilepticus (principal); S09.90XA Unspecified injury of head, initial encounter; D72.829 Elevated white blood cell count, unspecified; R00.0 Tachycardia, unspecified; R06.82 Tachypnea, not elsewhere classified; Z72.820 Sleep deprivation; X58.XXXA Exposure to other specified factors, initial encounter; Y93.89 Activity, other specified; Y92.89 Other specified places as the place of occurrence of the external cause; Y99.8 Other external cause status; Z79.899 Other long term (current) drug therapy
CPT/HCPCS: 36415; 70450; 70551; 80053; 80307; 81001; 82542; 85025; 86803; 87340; 95819; 96365; G0378; J2405